=== PATIENT | male | born 1950 | race Caucasian/White ===

== ENCOUNTER 2017-07-18 19:53 | Emergency (ER) | payer OTHER ==
[2017-07-18 19:58] VITALS: TEMP 99.4
[2017-07-18] MEDS ORDERED: KETOROLAC TROMETHAMINE 30 MG/1 ML VIAL IM ONE (22:21)
[2017-07-18 22:34] LABS: URINE APPEARANCE CLEAR; URINE BILIRUBIN NEGATIVE (NEGATIVE); URINE BLOOD 3+ (NEGATIVE); URINE COLOR STRAW; URINE GLUCOSE (UA) NEGATIVE (NEGATIVE); URINE KETONE NEGATIVE (NEGATIVE); URINE LEUK ESTERASE NEGATIVE (NEGATIVE); URINE NITRITE NEGATIVE (NEGATIVE); URINE PROTEIN NEGATIVE (NEGATIVE); URINE UROBILINOGEN NEGATIVE mg/dL (0.2-1.0)
[2017-07-18] MEDS ORDERED: KETOROLAC TROMETHAMINE 30 MG/1 ML VIAL ONE (22:34)
[2017-07-18 22:36] LABS: URINE BACTERIA RARE /hpf (NONE SEEN); URINE MUCUS RARE; URINE RBC 1 /hpf (0-3); URINE WBC 2 /hpf (3-5)
[2017-07-18 22:38] LABS: BASOPHIL 0.2 % (0-2.0); EOSINOPHIL 0.1 % (0-4.5); MCH 27.4 pg (25.7-33.7); MCHC 34.7 g/dl (32.0-35.9); NEUTROPHILS 78.9 % (42.8-82.8); RDW 14.9 % (11.9-15.9); WHITE BLOOD COUNT 9.1 K/mm3 (4.0-10.0)
[2017-07-18] MEDS ORDERED: KETOROLAC TROMETHAMINE 30 MG/1 ML VIAL IVPUSH ONE (22:43)
[2017-07-18 23:09] LABS: ANION GAP 7 (8-16); CALCIUM 8.8 mg/dL (8.5-10.1); CO2 25 mmol/L (21-32); CREATININE 2.3 mg/dL (0.7-1.3); GLUCOSE,RANDOM 117 mg/dL (74-106)
[2017-07-18 23:10] LABS: MEAN PLT VOLUME 10.4 fl (7.5-11.1); PLATELET COUNT 64 K/MM3 (134-434)
[2017-07-18 23:11] LABS: PLATELET ESTIMATE DECREASED
--- NOTE | 2017-07-18 23:40 | PDOC ---
History of Present Illness - General Chief Complaint: Pain, Acute Stated Complaint: PAIN, ACUTE Time Seen by Provider: 07/18/17 22:03 - History of Present Illness Initial Comments: 07/18/17 23:32 CHIEF COMPLAINT: "kidney stones" HISTORY OF PRESENT ILLNESS: 67 yo M with hx of HTN, HLD, and nephrolithiasis presents to ED with pain to L flank x 2 days. Patient states that he saw his urologist four days ago and believes he did have sediment in his urine. He was told to follow up on Thursday for further evaluation but to come to the ER if he began experiencing severe pain. He was given Levaquin to cover for a UTI. Over the last two days he has been having worsening pain and today he was told by his urologist to come in for a spiral CT. PCP:Grace Ryder Urologist is Dr. Null in [place]. PAST MEDICAL HISTORY: as per HPI FAMILY HISTORY: Denies SOCIAL HISTORY: Denies tobacco, alcohol, illicit drug use. SURGICAL HISTORY: "surgery for diverticulitis, and for kidney stones" ALLERGIES: No known drug allergies REVIEW OF SYSTEMS General/Constitutional: Denies fever or chills. Denies weakness, weight change. HEENT: Denies change in vision. Denies ear pain or discharge. Denies sore throat. Cardiovascular: Denies chest pain or shortness of breath. Respiratory: Denies cough, wheezing, or hemoptysis. Gastrointestinal: Denies nausea, vomiting, diarrhea or constipation. Denies rectal bleeding. Genitourinary: Blood in urine, dysuria, L flank pain. Musculoskeletal: Denies joint or muscle swelling or pain. Denies neck or back pain. Skin and breasts: Denies rash or easy bruising. PHYSICAL EXAM General Appearance: Well-appearing, appropriately dressed. No apparent distress , no intoxication. HEENT: EOMI, PERRLA, normal ENT inspection, normal voice, TMs normal, pharynx normal. No conjunctival pallor. No photophobia, scleral icterus. Neck: Supple. Trachea midline. No tenderness, rigidity, carotid bruit, stridor , lymphadenopathy, or thyromegaly. Respiratory/Chest: Lungs CTAB. Cardiovascular: RRR. S1, S2. Gastrointestinal/Abdominal: Normal bowel sounds. Abdomen soft, non-distended. No tenderness or rebound tenderness. No organomegaly, pulsatile mass, guarding , hernia, hepatomegaly, splenomegaly. Musculoskeletal/Extremities: Marked L CVA tenderness. Normal inspection. FROM of all extremities, normal capillary refill. Pelvis Stable. No tenderness to extremities, pedal edema, swelling, erythema or deformity. Integumentary: Appropriate color, dry, warm. 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 Fully oriented, alert. Appropriate mood/affect. Motor strength 5/5. No appreciable EOM palsy, facial droop or sensory deficit. Past History - Past Medical History Allergies/Adverse Reactions: Allergies Allergy/AdvReac Type Severity Reaction Status Date / Time No Known Allergies Allergy Verified 07/18/17 19:55 Home Medications: Ambulatory Orders Atorvastatin Calcium 10 mg PO DAILY 07/18/17 Levofloxacin [Levaquin -] 500 mg PO DAILY 07/18/17 Valsartan [Diovan] 160 mg PO DAILY 07/18/17 Tamsulosin HCl [Flomax] 0.4 mg PO DAILY #21 cap.er.24h 07/19/17 HTN: Yes Hypercholesterolemia: Yes Other medical history: diverticulits - Psycho/Social/Smoking Cessation Hx Suicidal Ideation: No Smoking History: Former smoker Have you smoked in the past 12 months: No Information on smoking cessation initiated: No *Physical Exam - Vital Signs Last Vital Signs Temp Pulse Resp BP Pulse Ox 99.4 F 91 H 18 150/84 99 07/18/17 19:55 07/18/17 19:55 07/18/17 19:55 07/18/17 19:55 07/18/17 19:55 ED Treatment Course - LABORATORY CBC & Chemistry Diagram: 07/18/17 22:30 07/18/17 22:33 - ADDITIONAL ORDERS Additional order review: Laboratory Results 07/18/17 07/18/17 22:33 22:20 Sodium 135 L Potassium 5.0 Chloride 103 Carbon Dioxide 25 Anion Gap 7 L BUN 25 H Creatinine 2.3 H Random Glucose 117 H Calcium 8.8 Urine Color Straw Urine Appearance Clear Urine pH 5.0 Urine Protein Negative Urine Glucose (UA) Negative Urine Ketones Negative Urine Blood 3+ H Urine Nitrite Negative Urine Bilirubin Negative Urine Urobilinogen Negative Ur Leukocyte Esterase Negative Urine RBC 1 Urine WBC 2 Urine Bacteria Rare Urine Mucus Rare 07/18/17 22:30 RBC 5.02 MCV 79.0 L MCHC 34.7 RDW 14.9 MPV 10.4 Neutrophils % 78.9 Lymphocytes % 8.0 Monocytes % 12.8 H Eosinophils % 0.1 Basophils % 0.2 - RADIOLOGY Radiology Studies Ordered: Category Date Time Status SPIRAL- RENAL-STONE CT [CT] Stat CT Scan 07/18/17 22:20 Taken - Medications Given in the ED: ED Medications Discontinued Medications Generic Name Dose Route Start Last Admin Trade Name Freq PRN Reason Stop Dose Admin Ketorolac Tromethamine 30 mg 07/18/17 22:21 07/18/17 22:44 Toradol Injection - IM 07/18/17 22:22 Not Given ONCE ONE Ketorolac Tromethamine 30 mg 07/18/17 22:43 07/18/17 22:43 Toradol Injection - IVPUSH 07/18/17 22:44 30 mg NOW ONE Administration Medical Decision Making - Medical Decision Making 07/18/17 23:40 67 yo M with hx of HTN, HLD, and nephrolithiasis presents to ED with pain to L flank x 2 days. -CBC, CMP -UA, Ucx -Spiral CT -30 mg Toradol IV 07/19/17 00:25 Creatinine 2.3, BUN 25. However patient and state that patient is known to have elevated creatinine, stating that "every time he gets his blood work done at Dr. Ryder's office they mention that he has an elevated kidney function test." Patient states at this time he has no pain at all. -1L NS -Flomax po RX for Flomax sent to pharm. Advised patient to take medications as prescribed. Patient states he has appointment with urologist Dr. Ortiz on Thursday morning at 9:30. Advised patient to f/u as planned and of signs and symptoms for return to ER; patient verbalized understanding and agrees to plan. *DC/Admit/Observation/Transfer Diagnosis at time of Disposition: Nephrolithiasis - Discharge Dispostion Condition at time of disposition: Improved Admit: No - Prescriptions Prescriptions: Tamsulosin HCl [Flomax] 0.4 mg PO DAILY #21 cap.er.24h - Referrals Referrals: Grace Ryder MD [Primary Care Provider] - Henry Ortiz MD [Staff Physician] - Alfonso Gonzalez MD [Staff Physician] - - Patient Instructions Printed Discharge Instructions: DI for Kidney Stones Additional Instructions: Please take medication as prescribed. Follow up with Dr. Ortiz on Thursday morning as planned. You may also wish to see a aquatic ecologist to further evaluate your elevated kidney function tests; I have provided a referral. If you experience any increased pain, inability to pass urine, or any new or worsening symptoms, please return to the ER.
[2017-07-19] MEDS ORDERED: TAMSULOSIN HCL 0.4 MG CAP.ER.24H (FP) PO ONE (00:24)
[2017-07-19] MEDS ORDERED: SODIUM CHLORIDE 0.9% 500 ML INFUS.BAG IV ONE (00:24)
[2017-07-19] MEDS ORDERED: TAMSULOSIN HCL 0.4 MG CAP.ER.24H (FP) ONE (01:11)
[2017-07-19 01:17] VITALS: BP 147/83; PULSE 76
== END 2017-07-19 01:18 | disposition home or self-care (01) ==
LOC: JER 19:53
PROC: 3E0333Z Introduction of Anti-inflammatory into Peripheral Vein, Percutaneous Approach (ICD-10-PCS; principal; 2017-07-18)
PROC: 3E0337Z Introduction of Electrolytic and Water Balance Substance into Peripheral Vein, Percutaneous Approach (ICD-10-PCS; 2017-07-18)
DX: N20.0 Calculus of kidney (principal); Z87.442 Personal history of urinary calculi; I10 Essential (primary) hypertension; E78.00 Pure hypercholesterolemia, unspecified
CPT/HCPCS: 36415; 74176; 80048; 81003; 81015; 85025; 87086; 96361; 96374; 99282-25

== ENCOUNTER 2017-07-25 14:28 | Inpatient (IN) | payer OTHER ==
[2017-07-25 14:32] VITALS: BMI 25.0
--- NOTE | 2017-07-25 15:07 | PDOC ---
History of Present Illness - General Chief Complaint: Pain, Acute Stated Complaint: KIDNEY STONES Time Seen by Provider: 07/25/17 15:06 History Source: Patient Exam Limitations: No Limitations - History of Present Illness Initial Comments: 07/25/17 22:09 CC: Kidney Stones Patient is a 67 y.o. male with a PMH of nephrolithiasis and diverticulosis who presents to our ED today c/o unremitting pain from his kidney stones in his left flank. Patient was evaluated at our facility on 07/18/17 for B/L nephrolithiasis at which time he was discharged and followed up with Dr. Ortiz who recommended no intervention for stone passage and return to ED if his pain continued. Patient was given Percocet for his pain, however, patient states it made him nauseous and he decided to come to the ED today because of continuing severe pain in his left side. Past History - Past Medical History Allergies/Adverse Reactions: Allergies Allergy/AdvReac Type Severity Reaction Status Date / Time No Known Allergies Allergy Verified 07/25/17 14:32 Home Medications: Ambulatory Orders Atorvastatin Calcium 10 mg PO DAILY 07/18/17 Levofloxacin [Levaquin -] 500 mg PO DAILY 07/18/17 Valsartan [Diovan] 160 mg PO DAILY 07/18/17 Tamsulosin HCl [Flomax] 0.4 mg PO DAILY #21 cap.er.24h 07/19/17 GI Disorders: Yes (DIVERTICULITIS.) HTN: Yes Hypercholesterolemia: Yes Kidney Stones: Yes - Surgical History Abdominal Surgery: Yes (FOR DIVERTIC.) - Psycho/Social/Smoking Cessation Hx Anxiety: No Suicidal Ideation: No Smoking History: Never smoked Have you smoked in the past 12 months: No Hx Alcohol Use: No Drug/Substance Use Hx: No Review of Systems - Review of Systems Constitutional: No: Chills, Diaphoresis, Fever, Unexplained wgt Loss HEENTM: No: Eye Pain, Blurred Vision, Tinnitus, Hearing Loss, Throat Pain Respiratory: No: Cough, Orthopnea, Shortness of Breath, Stridor, Wheezing Cardiac (ROS): No: Chest Pain, Edema, Irregular Heart Rate, Lightheadedness, Palpitations ABD/GI: No: Constipated, Diarrhea : Yes: Flank Pain. No: Burning, Dysuria Musculoskeletal: Yes: Back Pain Neurological: No: Headache, Numbness, Paresthesia Psychiatric: No: Anxiety, Depression All Other Systems: Reviewed and Negative *Physical Exam - Vital Signs Last Vital Signs Temp Pulse Resp BP Pulse Ox 99.1 F 88 18 114/72 98 07/25/17 14:29 07/25/17 14:29 07/25/17 14:29 07/25/17 14:29 07/25/17 14:29 - Physical Exam General Appearance: Yes: Nourished, Appropriately Dressed Neck: positive: Trachea midline, Supple Respiratory/Chest: positive: Lungs Clear, Normal Breath Sounds Cardiovascular: positive: Regular Rhythm, Regular Rate, S1, S2 Gastrointestinal/Abdominal: positive: Flat, Soft Male Genitalia: positive: CVAT Musculoskeletal: positive: CVA Tenderness (L) Extremity: positive: Normal Capillary Refill, Normal Inspection Integumentary: positive: Normal Color, Dry, Warm Neurologic: positive: Fully Oriented, Alert ED Treatment Course - LABORATORY CBC & Chemistry Diagram: 07/25/17 15:45 07/25/17 16:55 Medical Decision Making - Medical Decision Making 07/25/17 22:38 Patient is a 67 y.o. male with a PMH of nephrolithiasis returns with unremitting pain. PLAN 1. UA 2. BMP, CBC 3. Renal U/S 4. Pain control 07/25/17 22:[address] Hobbs, requested KUB and admission to inpatient hospital service following Cr 3.7 (2.3 on 07/18). Patient admitted to inpatient medicine service. *DC/Admit/Observation/Transfer Diagnosis at time of Disposition: Nephrolithiasis - Discharge Dispostion Condition at time of disposition: Good Admit: Yes - Attestations Physician Attestion: 07/25/17 23:51 I, Dr. Chyna Rebollar, attest the documentation in this note accurately reflects my medical decision making.
[2017-07-25] MEDS ORDERED: KETOROLAC TROMETHAMINE 30 MG/1 ML VIAL IVPUSH ONE (15:16)
--- NOTE | 2017-07-25 15:17 | PDOC ---
Attending Attestation - Medical Decision Making 07/25/17 15:49 Dr. Ortiz, urologist, was paged via phone answering service requesting a call back for doctor to doctor consult. <Raisa Sloan - Last Filed: 07/25/17 15:49> - Resident Resident Name: Chyna Rebollar - ED Attending Attestation I have performed the following: I have examined & evaluated the patient, The case was reviewed & discussed with the resident, I agree w/resident's findings & plan, Exceptions are as noted - HPI HPI: 67 yo M hx kidney stones presents with worsening pain to L flank. He was evaluated in ED recently for similar complaint, however, now it is getting worse. Denies vomiting. He had hematuria a few days ago. He has been taking percocet for pain, but needed to decrease the dose due to nausea associated with the medication. As a result, his pain has not been controlled. He saw Dr. Ortiz 2 days ago for follow-up. - Physicial Exam PE: GENERAL: Awake, alert, and fully oriented, in no acute distress HEAD: No signs of trauma EYES: PERRLA, EOMI, sclera anicteric, conjunctiva clear ENT: Auricles normal inspection, hearing grossly normal, nares patent, oropharynx clear without exudates. Moist mucosa NECK: Normal ROM, supple, no lymphadenopathy, JVD, or masses LUNGS: Breath sounds equal, clear to auscultation bilaterally. No wheezes, and no crackles HEART: Regular rate and rhythm, normal S1 and S2, no murmurs, rubs or gallops ABDOMEN: Soft, nontender, normoactive bowel sounds. No guarding, no rebound. No masses. +L CVAT. EXTREMITIES: Normal range of motion, no edema. No clubbing or cyanosis. No cords, erythema, or tenderness NEUROLOGICAL: Cranial nerves II through XII grossly intact. Normal speech, normal gait SKIN: Warm, Dry, normal turgor, no rashes or lesions noted. - Medical Decision Making Patient with obstructing kidney stone on the L side, now with increasing creatinine. Will admit to hospitalist, to be evaluated by urology and renal. <Constanza Musa - Last Filed: 07/25/17 17:16>
[2017-07-25] MEDS ORDERED: ONDANSETRON 4 MG/2 ML VIAL IVPB ONE (15:21)
[2017-07-25] MEDS ORDERED: morphine CARPU-JECT 4 MG/1 ML DISP.SYRIN IVPUSH ONE (15:22)
[2017-07-25] MEDS ORDERED: SODIUM CHLORIDE 0.9% 1000 ML INFUS.BAG IV ONE (15:25)
[2017-07-25] MEDS ORDERED: morphine CARPU-JECT 2 MG/1 ML DISP.SYRIN ONE (15:28)
[2017-07-25] MEDS ORDERED: ONDANSETRON 4 MG/2 ML VIAL ONE (15:28)
[2017-07-25 15:51] LABS: BASOPHIL 0.2 % (0-2.0); MCH 27.5 pg (25.7-33.7); MCHC 34.2 g/dl (32.0-35.9); MEAN CELL VOLUME 80.2 fl (80-96); MEAN PLT VOLUME 9.2 fl (7.5-11.1); NEUTROPHILS 75.5 % (42.8-82.8); PLATELET COUNT 122 K/MM3 (134-434); RDW 15.2 % (11.9-15.9)
[2017-07-25 15:59] LABS: URINE APPEARANCE SLCLOUDY; URINE BILIRUBIN NEGATIVE (NEGATIVE); URINE BLOOD 1+ (NEGATIVE); URINE COLOR LTYELLOW; URINE GLUCOSE (UA) 1+ (NEGATIVE); URINE KETONE NEGATIVE (NEGATIVE); URINE LEUK ESTERASE NEGATIVE (NEGATIVE); URINE NITRITE NEGATIVE (NEGATIVE); URINE PROTEIN NEGATIVE (NEGATIVE); URINE UROBILINOGEN NEGATIVE mg/dL (0.2-1.0)
[2017-07-25 16:05] LABS: ANION GAP 12 (8-16); CALCIUM 8.7 mg/dL (8.5-10.1); CO2 23 mmol/L (21-32); CREATININE 3.7 mg/dL (0.7-1.3); GLUCOSE,RANDOM 125 mg/dL (74-106)
[2017-07-25 16:06] LABS: GRANULAR CASTS 1 /lpf; URINE HYALINE CAST 13 /lpf; URINE MUCUS RARE
[2017-07-25 16:08] LABS: URINE WBC 12 /hpf (3-5)
[2017-07-25 16:13] LABS: INR 1.27 (0.82-1.09)
[2017-07-25] MEDS ORDERED: morphine CARPU-JECT 2 MG/1 ML DISP.SYRIN IM ONE (16:38)
[2017-07-25] MEDS ORDERED: HYDROmorphone HCL CARPU-JECT 1 MG/1 ML DISP.SYRIN IVPB ONE (16:46)
[2017-07-25] MEDS ORDERED: HYDROmorphone HCL CARPU-JECT 1 MG/1 ML DISP.SYRIN ONE (16:46)
[2017-07-25 18:26] LABS: ALBUMIN 2.8 g/dl (3.4-5.0); ALK PHOS 130 U/L (45-117); ANION GAP 10 (8-16); BILIRUBIN,TOTAL 0.3 mg/dL (0.2-1.0); CALCIUM 8.7 mg/dL (8.5-10.1); CO2 24 mmol/L (21-32); CREATININE 3.5 mg/dL (0.7-1.3); GLUCOSE,RANDOM 118 mg/dL (74-106); SGOT/AST 51 U/L (15-37); SGPT/ALT 72 U/L (12-78); TOT PROT 6.2 g/dl (6.4-8.2)
[2017-07-25] MEDS ORDERED: ONDANSETRON 4 MG/2 ML VIAL IVPUSH PRN (19:29)
--- NOTE | 2017-07-25 19:36 | PN ---
Teaching Attending Note Name of Resident: Rafita Caraballo ATTENDING PHYSICIAN STATEMENT I saw and evaluated the patient. I reviewed the resident's note and discussed the case with the resident. I agree with the resident's findings and plan as documented. SUBJECTIVE: 67 year old male that originally presented on 07/18 with c/o flank pain , was found to have evidence of ARF, non obstructive nephrolithiasis and uti and was discharged home from ED on oral Levaquin and FLomax to follow with urology . He returns today due to left flank pain that is getting worse. no fever , no chills. ED course is significant for US of the abdomen revealing Left sided hydronephrosis and obstructing 0.5 cm Left renal stone. PMH Nephrolithiasis HTN HLD OBJECTIVE: Vital Signs Temperature 98.9 F 07/25/17 19:33 Pulse Rate 84 07/25/17 19:33 Respiratory Rate 16 07/25/17 19:33 Blood Pressure 143/84 07/25/17 19:33 O2 Sat by Pulse Oximetry (%) 98 07/25/17 17:56 HEENT PERRL CVS S1 S2 WNL NO MRG , NO JVD NO PEDAL EDEMA RS CTA B/L CBC, BMP 07/25/17 15:45 07/25/17 16:55 ASSESSMENT : 1. Obstructive nephropathy/ARF - secondary to nephrolithiasis, acute . Unlikely will resolve with conservative management 2. Possible history of CKD and renal cysts 3. Left sided hydronephrosis- acute 4. HTN - stable 5. Intractable pain PLAN : 1. IVF 2. Pain contro lwith IV morphine PRN Q6 hr 3. Urology evaluation for cystoscopy and NPO after midnight 4. Monitor renal function 5 . No need for antibiotics at this time
[2017-07-25] MEDS ORDERED: oxyCODONE HCL 5 MG TABLET PO PRN (19:39)
[2017-07-25] MEDS ORDERED: ACETAMINOPHEN 325 MG TABLET (FP) PO PRN (19:39)
[2017-07-25] MEDS: morphine CARPU-JECT 2 MG/1 ML DISP.SYRIN IVPUSH PRN (19:50)
[2017-07-25] MEDS: SODIUM CHLORIDE 1,000 ML IV SCH (19:50)
--- NOTE | 2017-07-25 19:56 | HP ---
CHIEF COMPLAINT: Left flank pain PCP: Aleksey HISTORY OF PRESENT ILLNESS: Pt is a 67 y/o M with PMH HTN, HLD who presented to ED with continuing left back pain since his prior admission on the for the same. Pt had come to this ED and had a CT demonstrating multiple renal stones with moderate L hydronephrosis and parapelvic renal cysts. Pt was sent home with instructions to follow up with urologist, Dr. Ortiz. Pt states urologist was attempting to allow for spontaneous passage of stones. Pt denies hematuria, fever, chills, nausea, vomiting, diarrhea, chest pain, shortness of breath. 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, UA remarkable for 12 WBC, 1+ blood, 1+ glucose (2) NS x 1L, Morphine, hydromorphone (3) Recent Travel: denies PAST MEDICAL HISTORY: HTN, HLD, remote prior renal stone PAST SURGICAL HISTORY: denies Social History: Smoking: no Alcohol: no Drugs: no Family History: denies Allergies No Known Allergies Allergy (Verified 07/25/17 14:32) HOME MEDICATIONS: Home Medications Medication Instructions Recorded Atorvastatin Calcium 10 mg PO DAILY 07/18/17 Levofloxacin [Levaquin -] 500 mg PO DAILY 07/18/17 Valsartan [Diovan] 160 mg PO DAILY 07/18/17 Tamsulosin HCl [Flomax] 0.4 mg PO DAILY #21 cap.er.24h 07/19/17 REVIEW OF SYSTEMS CONSTITUTIONAL: Absent: fever, chills, diaphoresis, generalized weakness, malaise, loss of appetite, weight change HEENT: Absent: rhinorrhea, nasal congestion, throat pain, throat swelling, difficulty swallowing, mouth swelling, ear pain, eye pain, visual changes CARDIOVASCULAR: Absent: chest pain, syncope, palpitations, irregular heart rate, lightheadedness , peripheral edema RESPIRATORY: Absent: cough, shortness of breath, dyspnea with exertion, orthopnea, wheezing, stridor, hemoptysis GASTROINTESTINAL: abdominal/flank pain Absent:, abdominal distension, nausea, vomiting, diarrhea, constipation, melena , hematochezia GENITOURINARY: flank pain Absent: dysuria, frequency, urgency, hesitancy, hematuria, , genital pain MUSCULOSKELETAL: Absent: myalgia, arthralgia, joint swelling, back pain, neck pain SKIN: Absent: rash, itching, pallor HEMATOLOGIC/IMMUNOLOGIC: Absent: easy bleeding, easy bruising, lymphadenopathy, frequent infections ENDOCRINE: Absent: unexplained weight gain, unexplained weight loss, heat intolerance, cold intolerance NEUROLOGIC: Absent: headache, focal weakness or paresthesias, dizziness, unsteady gait, seizure, mental status changes, bladder or bowel incontinence PSYCHIATRIC: Absent: anxiety, depression, suicidal or homicidal ideation, hallucinations. PHYSICAL EXAMINATION Vital Signs - 24 hr 07/25/17 07/25/17 17:56 19:33 Temperature 98.5 F 98.9 F Pulse Rate 84 Pulse Rate [ 80 Apical] Respiratory 18 16 Rate Blood Pressure 143/84 Blood Pressure 110/77 [Right Arm] O2 Sat by Pulse 98 Oximetry (%) GENERAL: Awake, alert, and fully oriented, in no acute distress. HEAD: Normal with no signs of trauma. EYES: Pupils equal, round and reactive to light, extraocular movements intact, sclera anicteric, conjunctiva clear. No lid lag. EARS, NOSE, THROAT:nares patent, oropharynx clear without exudates. Moist mucous membranes. NECK: Normal range of motion, supple without lymphadenopathy, JVD, or masses. LUNGS: Breath sounds equal, clear to auscultation bilaterally. No wheezes, and no crackles. No accessory muscle use. HEART: Regular rate and rhythm, normal S1 and S2 without murmur, rub or gallop. ABDOMEN: Soft, marked tenderness to palpation of L flank not distended, normoactive bowel sounds, no guarding, no rebound, no masses. No hepatomegaly or splenomegaly. MUSCULOSKELETAL: Normal range of motion at all joints. No bony deformities or tenderness. No CVA tenderness. UPPER EXTREMITIES: 2+ pulses, warm, well-perfused. No cyanosis. No clubbing. No peripheral edema. LOWER EXTREMITIES: 2+ pulses, warm, well-perfused. No calf tenderness. No peripheral edema. NEUROLOGICAL: Cranial nerves II-XII intact. Normal speech. Normal gait. PSYCHIATRIC: Cooperative. Good eye contact. Appropriate mood and affect. SKIN: Warm, dry, normal turgor, no rashes or lesions noted, normal capillary refill. ASSESSMENT/PLAN: This is a 67 y/o gentleman with PMH HTN, HLD, prior kidney stone many years ago who presented to ED with L flank pain. Pt is being admitted for nephrolithiasis with hydronephrosis. #nephrolithiasis/hydronephrosis -nephrolithiasis by US -hydronephrosis by CT (07/18) -pyelonephritis unlikely. afebrile, no leukocytosis -Urology and Nephrology consulted. 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
[2017-07-25] MEDS: HEPARIN NA (PORCINE) 5,000 UNITS/ML 1ML VIAL SQ SCH (21:12)
[2017-07-26] MEDS: morphine CARPU-JECT 2 MG/1 ML DISP.SYRIN IVPUSH PRN ×2 (01:28→08:57)
--- NOTE | 2017-07-26 07:15 | CON.GU ---
Consult Consult Specialty:: Urology Reason for Consultation:: Left ureteral calculus and left hydronephrosis - History of Present Illness Chief Complaint: left sided back and abdominal pain - History Source History Provided By: Patient Limitations to Obtaining History: No Limitations - Past Medical History Renal/: Yes: Renal Inusuff, BPH - Alcohol/Substance Use Hx Alcohol Use: No - Smoking History Smoking history: Never smoked Have you smoked in the past 12 months: No - Social History Usual Living Arrangement: With Spouse Home Medications - Allergies Allergies/Adverse Reactions: Allergies Allergy/AdvReac Type Severity Reaction Status Date / Time No Known Allergies Allergy Verified 07/25/17 14:32 - Home Medications Home Medications: Ambulatory Orders Atorvastatin Calcium 10 mg PO DAILY 07/18/17 Levofloxacin [Levaquin -] 500 mg PO DAILY 07/18/17 Valsartan [Diovan] 160 mg PO DAILY 07/18/17 Tamsulosin HCl [Flomax] 0.4 mg PO DAILY #21 cap.er.24h 07/19/17 Family Disease History - Family Disease History Family History: Unremarkable Review of Systems - Review of Systems Constitutional: reports: No Symptoms Eyes: reports: No Symptoms HENT: reports: No Symptoms Neck: reports: No Symptoms Cardiovascular: reports: No Symptoms Respiratory: reports: No Symptoms Gastrointestinal: reports: Abdominal Pain, Nausea Genitourinary: reports: Burning, Hematuria Breasts: reports: No Symptoms Reported Musculoskeletal: reports: No Symptoms Integumentary: reports: No Symptoms Neurological: reports: No Symptoms Endocrine: reports: No Symptoms Hematology/Lymphatic: reports: No Symptoms Psychiatric: reports: No Symptoms Pain Intensity: 5 Physical Exam- Vital Signs: Vital Signs Temperature 98.9 F 07/26/17 06:00 Pulse Rate 73 07/26/17 06:00 Respiratory Rate 16 07/26/17 06:00 Blood Pressure 95/61 07/26/17 06:00 O2 Sat by Pulse Oximetry (%) 98 07/25/17 17:56 Constitutional: Yes: Well Nourished, No Distress Eyes: Yes: WNL, Conjunctiva Clear, EOM Intact HENT: Yes: WNL, Atraumatic, Normocephalic Neck: Yes: WNL, Supple, Trachea Midline Cardiovascular: Yes: WNL, Regular Rate and Rhythm Respiratory: Yes: WNL, Regular, CTA Bilaterally Gastrointestinal: Yes: WNL, Normal Bowel Sounds, Soft, Tenderness (left lower quadrewnt.) Renal/: Yes: WNL Kidneys: Yes: Flank Pain Left Pelvis: Yes: WNL Testicles: Yes: WNL Scrotum: Yes: WNL Penis: Yes: WNL Prostate Exam: Yes: Deferred Musculoskeletal: Yes: WNL Extremities: Yes: WNL Edema: No Integumentary: Yes: WNL Wound/Incision: Yes: Clean/Dry Neurological: Yes: WNL ...Motor Strength: WNL Psychiatric: Yes: WNL Labs: Reviewed. Serum creatinine is 3.5 today. Imaging - Results X-ray: Image Reviewed Ultrasound: Report Reviewed Problem List - Problems (1) Ureteral calculus Code(s): N20.1 - CALCULUS OF URETER Assessment/Plan Pt with obstructing left ureteral calculus with persistent pain intermittent. Currently has minimal pain which is controlled with MS. Pt has renal insufficiency and will schedule cysto and insertion of a left double J ureteral stent to relieve the obstructive and restore creatinin to unobstructed level. NPO after midnight.
[2017-07-26 08:07] LABS: BASOPHIL 0.3 % (0-2.0); EOSINOPHIL 1.1 % (0-4.5); MCH 26.8 pg (25.7-33.7); MCHC 33.4 g/dl (32.0-35.9); MEAN CELL VOLUME 80.1 fl (80-96); MEAN PLT VOLUME 8.9 fl (7.5-11.1); NEUTROPHILS 74.4 % (42.8-82.8); PLATELET COUNT 122 K/MM3 (134-434); RDW 15.2 % (11.9-15.9); WHITE BLOOD COUNT 5.5 K/mm3 (4.0-10.0)
[2017-07-26 08:27] LABS: INR 1.21 (0.82-1.09); PROTHROMBIN TIME (PATIENT) 13.4 SEC (9.98-11.88)
[2017-07-26 08:30] LABS: ACTIVATED PTT 26.2 SECONDS (26.9-34.4)
[2017-07-26 08:47] LABS: ANION GAP 10 (8-16); CALCIUM 8.6 mg/dL (8.5-10.1); CO2 21 mmol/L (21-32); CREATININE 3.1 mg/dL (0.7-1.3); GLUCOSE,RANDOM 99 mg/dL (74-106); MAGNESIUM 2.3 mg/dL (1.8-2.4); PHOSPHOROUS 4.2 mg/dL (2.5-4.9)
[2017-07-26] MEDS: TAMSULOSIN HCL 0.4 MG CAP.ER.24H (FP) PO SCH (08:57)
[2017-07-26] MEDS: HEPARIN NA (PORCINE) 5,000 UNITS/ML 1ML VIAL SQ SCH ×2 (09:06→21:53)
--- NOTE | 2017-07-26 09:35 | PN ---
Physical Exam: SUBJECTIVE: Patient seen and examined. Flank pain is relieved by morphine. Oxycodone made him nauseous. OBJECTIVE: Vital Signs Period Temp Pulse Resp BP Sys/Cronin Pulse Ox Last 24 Hr 98.5 F-98.9 F 73-84 16-18 95-143/61-84 98 GENERAL: The patient is awake, alert, and fully oriented, in no acute distress. LUNGS: Breath sounds equal, clear to auscultation bilaterally, no wheezes, no crackles, no accessory muscle use. HEART: Regular rate and rhythm, S1, S2 without murmur, rub or gallop. ABDOMEN: Soft, nontender, nondistended, normoactive bowel sounds, no guarding, no rebound, no hepatosplenomegaly, no masses. EXTREMITIES: 2+ pulses, warm, well-perfused, no edema. Laboratory Results - last 24 hr 07/26/17 07/26/17 07/26/17 06:00 06:00 06:00 WBC 5.5 RBC 4.17 Hgb 11.2 L Hct 33.4 L MCV 80.1 MCH 26.8 MCHC 33.4 RDW 15.2 Plt Count 122 L MPV 8.9 Neutrophils % 74.4 Lymphocytes % 11.2 Monocytes % 13.0 H Eosinophils % 1.1 Basophils % 0.3 INR 1.21 H PTT (Actin FS) 26.2 L Sodium 138 Potassium 4.5 Chloride 107 Carbon Dioxide 21 Anion Gap 10 BUN 50 H Creatinine 3.1 H Random Glucose 99 Calcium 8.6 Phosphorus 4.2 Magnesium 2.3 Active Medications Generic Name Dose Route Start Last Admin Trade Name Freq PRN Reason Stop Dose Admin Acetaminophen 650 mg 07/25/17 19:39 Tylenol - PO Q6H PRN FEVER OR PAIN Heparin Sodium (Porcine) 5,000 unit 07/25/17 22:00 07/26/17 09:06 Heparin - SQ 5,000 unit BID BRIANA Administration Sodium Chloride 1,000 mls @ 100 mls/hr 07/25/17 19:30 07/25/17 19:50 Normal Saline - IV 100 mls/hr ASDIR BRIANA Administration Morphine Sulfate 2 mg 07/25/17 19:22 07/26/17 08:57 Morphine Injection - IVPUSH 2 mg Q6H PRN Administration PAIN Ondansetron HCl 4 mg 07/25/17 19:29 Zofran Injection IVPUSH Q6H PRN NAUSEA AND/OR VOMITING Oxycodone HCl 10 mg 07/25/17 19:39 Roxicodone - PO Q6H PRN Tamsulosin HCl 0.4 mg 07/26/17 08:30 07/26/17 08:57 Flomax - PO 0.4 mg DAILY@0830 [facility] Administration ASSESSMENT/PLAN: This is a 67 year old man with a history of HTN, hyperlipidemia, kidney stone who presented to ED with left flank pain. 1. Obstructive uropathy secondary to 6 mm left proximal ureteral stone with left hydronephrosis - Continue IV fluid, Flomax - Continue morphine as needed for pain, Zofran as needed for nausea - Plan for stent placement tomorrow 2. Acute kidney injury - Creatinine improving - will need stent to relieve ureteral obstruction - Continue IV fluid - Monitor creatinine 3. HTN - Diovan held secondary to SELINA 4. Hyperlipidemia - Continue Lipitor Visit type - Emergency Visit Emergency Visit: Yes ED Registration Date: 07/25/17 Care time: The patient presented to the Emergency Department on the above date and was hospitalized for further evaluation of their emergent condition. - New Patient This patient is new to me today: Yes Date on this admission: 07/26/17 - Critical Care Critical Care patient: No - Discharge Referral Referred to [facility] Med P.C.: No
--- NOTE | 2017-07-26 15:07 | CONSULT ---
Consult Consult Specialty:: Nephrology Reason for Consultation:: SELINA and nephrolithiasis - History of Present Illness Chief Complaint: flank pain History of Present Illness: Pt is a 67 year old male with pmhx of nephrolithiasis and diverticulosis who presents to the ER for flank terry. He was in the ER about a week ago and was discharged with outpt follow up. He has not seen Dr Ortiz. He presented with worsening pain. He was found to have SELINA and I was called to evaluate him. Pt was found to have left sided hydro and is going for cysto tomorrow. He denies fevers of chills. He has been taking nsaids daily for pain. He is awake and alert. - History Source History Provided By: Patient, Medical Record - Past Medical History Cardio/Vascular: Yes: HTN, Hyperlipdemia Gastrointestinal: Yes: Diverticulosis Renal/: Yes: Renal Inusuff, BPH, Renal Calculi - Alcohol/Substance Use Hx Alcohol Use: No - Smoking History Smoking history: Never smoked Have you smoked in the past 12 months: No - Social History Usual Living Arrangement: With Spouse Home Medications - Allergies Allergies/Adverse Reactions: Allergies Allergy/AdvReac Type Severity Reaction Status Date / Time No Known Allergies Allergy Verified 07/25/17 14:32 - Home Medications Home Medications: Ambulatory Orders Atorvastatin Calcium 10 mg PO DAILY 07/18/17 Levofloxacin [Levaquin -] 500 mg PO DAILY 07/18/17 Valsartan [Diovan] 160 mg PO DAILY 07/18/17 Tamsulosin HCl [Flomax] 0.4 mg PO DAILY #21 cap.er.24h 07/19/17 Family Disease History - Family Disease History Family History: Denies Review of Systems - Review of Systems Constitutional: reports: Malaise. denies: Chills HENT: reports: No Symptoms Neck: reports: No Symptoms Cardiovascular: reports: No Symptoms Respiratory: reports: No Symptoms Gastrointestinal: reports: No Symptoms Genitourinary: reports: Flank Pain, Hematuria Musculoskeletal: reports: No Symptoms Integumentary: reports: No Symptoms Neurological: reports: No Symptoms Endocrine: reports: No Symptoms Hematology/Lymphatic: reports: No Symptoms Psychiatric: reports: No Symptoms Physical Exam Vital Signs: Vital Signs Temperature 98.5 F 07/26/17 07:58 Pulse Rate 79 07/26/17 07:58 Respiratory Rate 18 07/26/17 07:58 Blood Pressure 135/80 07/26/17 07:58 O2 Sat by Pulse Oximetry (%) 96 07/26/17 09:00 Constitutional: Yes: Calm Eyes: Yes: Conjunctiva Clear HENT: Yes: Atraumatic Neck: Yes: Supple Cardiovascular: Yes: S1, S2 Respiratory: Yes: CTA Bilaterally Gastrointestinal: Yes: Normal Bowel Sounds, Soft Renal/: Yes: CVA Tenderness - Left Musculoskeletal: Yes: WNL Edema: No Neurological: Yes: Oriented Psychiatric: Yes: Oriented Labs: CBC, BMP 07/26/17 06:00 07/26/17 06:00 Laboratory Tests 07/18/17 07/25/17 07/25/17 22:33 15:45 15:45 WBC 7.0 Hgb 11.9 D Sodium Potassium Chloride Carbon Dioxide Anion Gap BUN Creatinine 2.3 H Urine Protein Negative Urine Glucose (UA) 1+ H Urine Ketones Negative Urine Blood 1+ H Urine Nitrite Negative Urine Bilirubin Negative Urine Urobilinogen Negative Ur Leukocyte Esterase Negative 07/25/17 07/25/17 07/26/17 15:45 16:55 06:00 WBC 5.5 Hgb 11.2 L Sodium Potassium Chloride Carbon Dioxide Anion Gap BUN 58 H Creatinine 3.7 H D 3.5 H Urine Protein Urine Glucose (UA) Urine Ketones Urine Blood Urine Nitrite Urine Bilirubin Urine Urobilinogen Ur Leukocyte Esterase 07/26/17 06:00 WBC Hgb Sodium 138 Potassium 4.5 Chloride 107 Carbon Dioxide 21 Anion Gap 10 BUN Creatinine 3.1 H Urine Protein Urine Glucose (UA) Urine Ketones Urine Blood Urine Nitrite Urine Bilirubin Urine Urobilinogen Ur Leukocyte Esterase Imaging - Results Ultrasound: Report Reviewed (left side hydro) Problem List - Problems (1) Nephrolithiasis Code(s): N20.0 - CALCULUS OF KIDNEY (2) SELINA (acute kidney injury) Code(s): N17.9 - ACUTE KIDNEY FAILURE, UNSPECIFIED (3) Hypertension Code(s): I10 - ESSENTIAL (PRIMARY) HYPERTENSION Assessment/Plan Current Medications Generic Name Dose Route Start Last Admin Trade Name Freq PRN Reason Stop Dose Admin Acetaminophen 650 mg 07/25/17 19:39 Tylenol - PO Q6H PRN FEVER OR PAIN Atorvastatin Calcium 10 mg 07/26/17 22:00 Lipitor - PO HS BRIANA Heparin Sodium (Porcine) 5,000 unit 07/25/17 22:00 07/26/17 09:06 Heparin - SQ 5,000 unit BID BRIANA Administration Sodium Chloride 1,000 mls @ 100 mls/hr 07/25/17 19:30 07/25/17 19:50 Normal Saline - IV 100 mls/hr ASDIR BRIANA Administration Morphine Sulfate 2 mg 07/25/17 19:22 07/26/17 08:57 Morphine Injection - IVPUSH 2 mg Q6H PRN Administration PAIN Ondansetron HCl 4 mg 07/25/17 19:29 Zofran Injection IVPUSH Q6H PRN NAUSEA AND/OR VOMITING Oxycodone HCl 10 mg 07/25/17 19:39 Roxicodone - PO Q6H PRN Tamsulosin HCl 0.4 mg 07/26/17 08:30 07/26/17 08:57 Flomax - PO 0.4 mg DAILY@0830 BRIANA Administration Impression 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 nephrolithiasis 4. left side hydro 5. nsaid use 6. hyperlipidemia Plan - cont fluids - stop nsaids - repeat labs in am - pt going for cysto - SELINA likely from obstruction and from excess NSAID use - will monitor renal function - will need outpt follow up - will follow Dr Gonzalez
[2017-07-26] MEDS: SODIUM CHLORIDE 1,000 ML IV SCH (17:02)
[2017-07-26] MEDS: ATORVASTATIN CA 10 MG TABLET (FP) PO SCH ×2 (21:52→21:56)
[2017-07-27] MEDS: SODIUM CHLORIDE 1,000 ML IV SCH (06:37)
[2017-07-27] MEDS: TAMSULOSIN HCL 0.4 MG CAP.ER.24H (FP) PO SCH (07:47)
[2017-07-27 08:51] LABS: ANION GAP 11 (8-16); CALCIUM 8.5 mg/dL (8.5-10.1); CO2 21 mmol/L (21-32); CREATININE 1.8 mg/dL (0.7-1.3); GLUCOSE,RANDOM 98 mg/dL (74-106)
[2017-07-27] MEDS: HEPARIN NA (PORCINE) 5,000 UNITS/ML 1ML VIAL SQ SCH ×2 (09:14→22:00)
[2017-07-27] MEDS ORDERED: MIDAZOLAM HCL 2 MG/2 ML SINGLE DOSE VIAL ONE (14:21)
[2017-07-27] MEDS ORDERED: PROPOFOL 20 ML ONE (14:21)
[2017-07-27] MEDS ORDERED: LEVOFLOXACIN 500 MG IVPB 100 ML IVPB ONE (14:38)
[2017-07-27] MEDS ORDERED: LEVOFLOXACIN 500 MG PREMIX BAG IVPB ONE (14:40)
--- NOTE | 2017-07-27 14:58 | OP ---
Operative Note - Note: Operative Date: 07/27/17 Pre-Operative Diagnosis: left hydronephrosis, left ureteral calculus Operation: cystoscopy, left retrograde Findings: No stones or intraluminal ureteral abnormalities. Resolved hydronephrosis Post-Operative Diagnosis: Same as Pre-op Surgeon: Henry Ortiz Anesthesia: General Operative Report Dictated: Yes
[2017-07-27] MEDS ORDERED: ONDANSETRON 4 MG/2 ML VIAL IVPUSH PRN ×3 (14:59→15:14)
[2017-07-27] MEDS ORDERED: LACTATED RINGERS SOLUTION 1,000 ML IV SCH (15:00)
--- NOTE | 2017-07-27 15:05 | PN ---
Progress Note, Physician History of Present Illness: Pt seen and examined at bedside. He says he passed a stone. I saw him before he went for the cystoscopy. - Current Medication List Current Medications: Active Medications Acetaminophen (Tylenol -) 650 mg PO Q6H PRN PRN Reason: FEVER OR PAIN Atorvastatin Calcium (Lipitor -) 10 mg PO HS [facility] Last Admin: 07/26/17 21:56 Dose: Not Given Fentanyl (Sublimaze Injection -) 50 mcg IVPUSH [id number] PRN PRN Reason: PAIN Stop: 07/30/17 15:00 Heparin Sodium (Porcine) (Heparin -) 5,000 unit SQ BID [facility] Last Admin: 07/27/17 09:14 Dose: Not Given Sodium Chloride (Normal Saline -) 1,000 mls @ 100 mls/hr IV ASDIR [facility] Last Admin: 07/27/17 06:37 Dose: 100 mls/hr Lactated Ringer's (Lactated Ringers Solution) 1,000 mls @ 125 mls/hr IV ASDIR [facility] Morphine Sulfate (Morphine Injection -) 2 mg IVPUSH Q6H PRN PRN Reason: PAIN Last Admin: 07/26/17 08:57 Dose: 2 mg Ondansetron HCl (Zofran Injection) 4 mg IVPUSH Q6H PRN PRN Reason: NAUSEA AND/OR VOMITING Ondansetron HCl (Zofran Injection) 4 mg IVPUSH Q6H PRN PRN Reason: NAUSEA AND/OR VOMITING Stop: 07/27/17 21:00 Oxycodone HCl (Roxicodone -) 10 mg PO Q6H PRN Tamsulosin HCl (Flomax -) 0.4 mg PO DAILY@0830 [facility] Last Admin: 07/27/17 07:47 Dose: Not Given - Objective Vital Signs: Vital Signs Temperature 98.6 F 07/27/17 08:00 Pulse Rate 68 07/27/17 10:29 Respiratory Rate 18 07/27/17 10:29 Blood Pressure 129/78 07/27/17 10:29 O2 Sat by Pulse Oximetry (%) 96 07/27/17 09:00 Constitutional: Yes: Calm Eyes: Yes: Conjunctiva Clear HENT: Yes: Atraumatic Cardiovascular: Yes: S1, S2 Respiratory: Yes: CTA Bilaterally Gastrointestinal: Yes: Normal Bowel Sounds, Soft Genitourinary: Yes: WNL Musculoskeletal: Yes: WNL Edema: No Neurological: Yes: Oriented Psychiatric: Yes: Oriented Labs: CBC, BMP 07/26/17 06:00 07/27/17 07:30 INR, PTT INR 1.21 (0.82-1.09) H 07/26/17 06:00 Problem List - Problems (1) Nephrolithiasis Code(s): N20.0 - CALCULUS OF KIDNEY (2) SELINA (acute kidney injury) Code(s): N17.9 - ACUTE KIDNEY FAILURE, UNSPECIFIED (3) Hypertension Code(s): I10 - ESSENTIAL (PRIMARY) HYPERTENSION Assessment/Plan Current Medications Generic Name Dose Route Start Last Admin Trade Name Freq PRN Reason Stop Dose Admin Acetaminophen 650 mg 07/25/17 19:39 Tylenol - PO Q6H PRN FEVER OR PAIN Atorvastatin Calcium 10 mg 07/26/17 22:00 07/26/17 21:56 Lipitor - PO Not Given HS BRIANA Fentanyl 50 mcg 07/27/17 14:59 Sublimaze Injection - IVPUSH 07/30/17 15:00 [id number] PRN PAIN Heparin Sodium (Porcine) 5,000 unit 07/25/17 22:00 07/27/17 09:14 Heparin - SQ Not Given BID BRIANA Sodium Chloride 1,000 mls @ 100 mls/hr 07/25/17 19:30 07/27/17 06:37 Normal Saline - IV 100 mls/hr ASDIR BRIANA Administration Lactated Ringer's 1,000 mls @ 125 mls/hr 07/27/17 15:00 Lactated Ringers Solution IV ASDIR BRIANA Morphine Sulfate 2 mg 07/25/17 19:22 07/26/17 08:57 Morphine Injection - IVPUSH 2 mg Q6H PRN Administration PAIN Ondansetron HCl 4 mg 07/25/17 19:29 Zofran Injection IVPUSH Q6H PRN NAUSEA AND/OR VOMITING Ondansetron HCl 4 mg 07/27/17 14:59 Zofran Injection IVPUSH 07/27/17 21:00 Q6H PRN NAUSEA AND/OR VOMITING Oxycodone HCl 10 mg 07/25/17 19:39 Roxicodone - PO Q6H PRN Tamsulosin HCl 0.4 mg 07/26/17 08:30 07/27/17 07:47 Flomax - PO Not Given DAILY@0830 BRIANA Impression 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 hx HTN 3. nephrolithiasis 4. left side hydro 5. nsaid use 6. hyperlipidemia Plan - renal function improving - pt going in for cysto - he says he passed the stone - avoid nsaids - repeat labs in am - can see pt in office - SELINA likely from obstruction and from excess NSAID use - will follow Dr Gonzalez
[2017-07-27] MEDS ORDERED: morphine CARPU-JECT 2 MG/1 ML DISP.SYRIN IVPUSH PRN (15:14)
[2017-07-27] MEDS ORDERED: ACETAMINOPHEN 325 MG TABLET (FP) PO PRN (15:14)
[2017-07-27] MEDS ORDERED: oxyCODONE HCL 5 MG TABLET PO PRN (15:14)
[2017-07-27] MEDS: LACTATED RINGERS SOLUTION 1,000 ML IV SCH (16:39)
--- NOTE | 2017-07-27 18:54 | PN ---
Physical Exam: SUBJECTIVE: Patient seen and examined. He passed the stone. No more flank pain. I saw him before his cystoscopy today OBJECTIVE: Vital Signs Period Temp Pulse Resp BP Sys/Cronin Pulse Ox Last 24 Hr 98.0 F-98.7 F 67-82 16-20 125-159/68-89 95-99 GENERAL: The patient is awake, alert, and fully oriented, in no acute distress. HEAD: Normal with no signs of trauma. EYES: PERRL, extraocular movements intact, sclera anicteric, conjunctiva clear. No ptosis. ENT: Ears normal, nares patent, oropharynx clear without exudates, moist mucous membranes. NECK: Trachea midline, full range of motion, supple. LUNGS: Breath sounds equal, clear to auscultation bilaterally, no wheezes, no crackles, no accessory muscle use. HEART: Regular rate and rhythm, S1, S2 with murmur, rub or gallop. ABDOMEN: Soft, nontender, No CVA tenderness, bilaterally ,nondistended, normoactive bowel sounds, no guarding, no rebound, no hepatosplenomegaly, no masses. EXTREMITIES: 2+ pulses, warm, well-perfused, no edema. NEUROLOGICAL: Cranial nerves II through XII grossly intact. Normal speech, gait not observed. PSYCH: Normal mood, normal affect. SKIN: Warm, dry, normal turgor, no rashes or lesions noted Laboratory Results - last 24 hr 07/27/17 07:30 Sodium 141 Potassium 4.4 Chloride 109 H Carbon Dioxide 21 Anion Gap 11 BUN 44 H Creatinine 1.8 H D Random Glucose 98 Calcium 8.5 Laboratory Tests 07/25/17 07/25/17 07/26/17 15:45 16:55 06:00 BUN 58 H D 58 H 50 H Creatinine 3.7 H D 3.5 H 3.1 H 07/27/17 07:30 BUN 44 H Creatinine 1.8 H D Active Medications Generic Name Dose Route Start Last Admin Trade Name Freq PRN Reason Stop Dose Admin Acetaminophen 650 mg 07/27/17 15:14 Tylenol - PO Q6H PRN FEVER OR PAIN Atorvastatin Calcium 10 mg 07/27/17 22:00 Lipitor - PO HS BRIANA Heparin Sodium (Porcine) 5,000 unit 07/27/17 22:00 Heparin - SQ BID BRIANA Lactated Ringer's 1,000 mls @ 125 mls/hr 07/27/17 15:14 07/27/17 16:39 Lactated Ringers Solution IV 125 mls/hr ASDIR BRIANA Administration Levofloxacin 500 mg 07/28/17 10:00 Levaquin - PO DAILY [facility] Morphine Sulfate 2 mg 07/27/17 15:14 Morphine Injection - IVPUSH Q6H PRN PAIN Ondansetron HCl 4 mg 07/27/17 15:14 Zofran Injection IVPUSH Q6H PRN NAUSEA AND/OR VOMITING Ondansetron HCl 4 mg 07/27/17 15:14 Zofran Injection IVPUSH 07/27/17 21:00 Q6H PRN NAUSEA AND/OR VOMITING Oxycodone HCl 10 mg 07/27/17 15:14 Roxicodone - PO Q6H PRN Tamsulosin HCl 0.4 mg 07/26/17 08:30 07/27/17 07:47 Flomax - PO Not Given DAILY@0830 [facility] Valsartan 160 mg 07/28/17 10:00 Diovan - PO DAILY [facility] ASSESSMENT/PLAN: 1. L Nephrolithiasis Stone passed- stable S/p cystoscopy- hydronephrosis resolved 2. SELINA- BUN and CR trending down- Likely secondary to obstruction Observe till tomorrow for likely discharge Problem List - Problems (1) SELINA (acute kidney injury) Code(s): N17.9 - ACUTE KIDNEY FAILURE, UNSPECIFIED (2) Hypertension Code(s): I10 - ESSENTIAL (PRIMARY) HYPERTENSION (3) Nephrolithiasis Code(s): N20.0 - CALCULUS OF KIDNEY Visit type - Emergency Visit Emergency Visit: Yes ED Registration Date: 07/25/17 Care time: The patient presented to the Emergency Department on the above date and was hospitalized for further evaluation of their emergent condition. - New Patient This patient is new to me today: Yes Date on this admission: 07/27/17 - Critical Care Critical Care patient: No - Discharge Referral Referred to [facility] Med P.C.: No
--- NOTE | 2017-07-27 20:01 | PN ---
Teaching Attending Note Name of Resident: Cass Metz ATTENDING PHYSICIAN STATEMENT I saw and evaluated the patient. I reviewed the resident's note and discussed the case with the resident. I agree with the resident's findings and plan as documented. SUBJECTIVE: no pain or hematuria . seen before cystoscopy today OBJECTIVE: NAD Cv: RRR, 3/6 Sm at LUSB, LLSB, RUSB, apex Lungs: CTAB ext: no edema Abd : soft, NT, ND , NL BS A/P: 67 y/o man with h/o nephrolithiasis who presented with L flank pain and was found to have L hydro with obstructing proximal stone 1- L hydro with nephrolithiasis : - s/p retrograde cystoscopy today . no stones found - cont IVF till am - follow urine cx - Uro f/u 2- SELINA: likely due to obstructive uropathy and NSAIDs use - cont IVF - expect cr to improve further tomorrow 3- HTN: slightly elevated. cont to hold diovan due to SELINA dispo : possible dc tomorrow
[2017-07-27] MEDS ORDERED: ATORVASTATIN CA 10 MG TABLET (FP) PO SCH (22:00)
[2017-07-28] MEDS: LACTATED RINGERS SOLUTION 1,000 ML IV SCH (02:09)
--- NOTE | 2017-07-28 08:12 | OP ---
DATE OF OPERATION: 07/27/2017 PREOPERATIVE DIAGNOSIS: Left ureteral calculus, left hydroureteronephrosis. POSTOPERATIVE DIAGNOSIS: Resolved hydronephrosis and passed stone. OPERATIVE PROCEDURE: Cystoscopy, left retrograde. OPERATING SURGEON: Ghazal Ortiz MD ANESTHESIA: General. DESCRIPTION OF PROCEDURE: The patient was brought to the operating room, given sedation and then light general anesthesia, placed in lithotomy position, prepped and draped in normal sterile fashion. A 22-Lithuanian cystoscope was inserted into the urethra without difficulty. Panendoscopy revealed what was a normal bladder mucosa with mild trabeculations, moderate prostatic hypertrophy. At the site of the left ureteral orifice there appeared to be some mucosal abrasion consistent with a passed calculus. Using a 6-Lithuanian open-ended catheter, a retrograde was performed. The diameter and trajectory of the ureter was normal without any intraluminal abnormalities. There was resolved hydronephrosis on the left. The ureteral catheter was removed, and there was prompt drainage of the contrast material. No stones seen. The bladder was emptied. The patient placed supine, awakened, and accompanied to the recovery area in stable condition. GHAZAL ORTIZ M.D. [id number]
--- NOTE | 2017-07-28 08:26 | PN ---
Progress Note (short form) - Note Progress Note: Anesthesia POD#1 S/P Cystoscopy and removal of ureteral stone under GA No N/V,no pain,VSS. eating breakfast. No complications seen. Irma Sue.
[2017-07-28 09:12] VITALS: PULSE 74
[2017-07-28 09:48] LABS: ANION GAP 8 (8-16); CALCIUM 8.4 mg/dL (8.5-10.1); CO2 25 mmol/L (21-32); CREATININE 1.5 mg/dL (0.7-1.3); GLUCOSE,RANDOM 108 mg/dL (74-106)
[2017-07-28] MEDS ORDERED: TAMSULOSIN HCL 0.4 MG CAP.ER.24H (FP) PO SCH (10:00)
[2017-07-28] MEDS ORDERED: VALSARTAN 160 MG TABLET (UD) PO SCH (10:00)
[2017-07-28] MEDS ORDERED: LEVOFLOXACIN 500 MG TABLET (FP) PO SCH (10:00)
[2017-07-28] MEDS: TAMSULOSIN HCL 0.4 MG CAP.ER.24H (FP) PO SCH (11:39)
[2017-07-28] MEDS: HEPARIN NA (PORCINE) 5,000 UNITS/ML 1ML VIAL SQ SCH (11:39)
--- NOTE | 2017-07-28 12:39 | PN ---
Progress Note, Physician History of Present Illness: Pt seen and examined at bedside. He is awake and alert. He denies pain. - Current Medication List Current Medications: Active Medications Acetaminophen (Tylenol -) 650 mg PO Q6H PRN PRN Reason: FEVER OR PAIN Last Admin: 07/27/17 22:00 Dose: 650 mg Atorvastatin Calcium (Lipitor -) 10 mg PO HS [facility] Last Admin: 07/27/17 22:00 Dose: 10 mg Heparin Sodium (Porcine) (Heparin -) 5,000 unit SQ BID [facility] Last Admin: 07/28/17 11:39 Dose: 5,000 unit Lactated Ringer's (Lactated Ringers Solution) 1,000 mls @ 125 mls/hr IV ASDIR [facility] Last Admin: 07/28/17 02:09 Dose: 125 mls/hr Morphine Sulfate (Morphine Injection -) 2 mg IVPUSH Q6H PRN PRN Reason: PAIN Ondansetron HCl (Zofran Injection) 4 mg IVPUSH Q6H PRN PRN Reason: NAUSEA AND/OR VOMITING Oxycodone HCl (Roxicodone -) 10 mg PO Q6H PRN Last Admin: 07/27/17 22:00 Dose: 10 mg Tamsulosin HCl (Flomax -) 0.4 mg PO DAILY@0830 [facility] Last Admin: 07/28/17 11:39 Dose: 0.4 mg - Objective Vital Signs: Vital Signs Temperature 99.0 F 07/28/17 09:10 Pulse Rate 74 07/28/17 09:10 Respiratory Rate 18 07/28/17 09:10 Blood Pressure 133/77 07/28/17 09:10 O2 Sat by Pulse Oximetry (%) 97 07/27/17 20:34 Constitutional: Yes: Calm Eyes: Yes: Conjunctiva Clear HENT: Yes: Atraumatic Neck: Yes: Supple Cardiovascular: Yes: S1, S2 Respiratory: Yes: CTA Bilaterally Gastrointestinal: Yes: Normal Bowel Sounds, Soft Genitourinary: Yes: WNL Musculoskeletal: Yes: WNL Edema: No Neurological: Yes: Oriented Psychiatric: Yes: Oriented Labs: CBC, BMP 07/26/17 06:00 07/28/17 08:55 INR, PTT INR 1.21 (0.82-1.09) H 07/26/17 06:00 Problem List - Problems (1) Nephrolithiasis Code(s): N20.0 - CALCULUS OF KIDNEY (2) SELINA (acute kidney injury) Code(s): N17.9 - ACUTE KIDNEY FAILURE, UNSPECIFIED (3) Hypertension Code(s): I10 - ESSENTIAL (PRIMARY) HYPERTENSION Assessment/Plan Current Medications Generic Name Dose Route Start Last Admin Trade Name Freq PRN Reason Stop Dose Admin Acetaminophen 650 mg 07/27/17 15:14 07/27/17 22:00 Tylenol - PO 650 mg Q6H PRN Administration FEVER OR PAIN Atorvastatin Calcium 10 mg 07/27/17 22:00 07/27/17 22:00 Lipitor - PO 10 mg HS BRIANA Administration Heparin Sodium (Porcine) 5,000 unit 07/27/17 22:00 07/28/17 11:39 Heparin - SQ 5,000 unit BID BRIANA Administration Lactated Ringer's 1,000 mls @ 125 mls/hr 07/27/17 15:14 07/28/17 02:09 Lactated Ringers Solution IV 125 mls/hr ASDIR BRIANA Administration Morphine Sulfate 2 mg 07/27/17 15:14 Morphine Injection - IVPUSH Q6H PRN PAIN Ondansetron HCl 4 mg 07/27/17 15:14 Zofran Injection IVPUSH Q6H PRN NAUSEA AND/OR VOMITING Oxycodone HCl 10 mg 07/27/17 15:14 07/27/17 22:00 Roxicodone - PO 10 mg Q6H PRN Administration Tamsulosin HCl 0.4 mg 07/26/17 08:30 07/28/17 11:39 Flomax - PO 0.4 mg DAILY@0830 BRIANA Administration Impression 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 hx HTN 3. nephrolithiasis 4. left side hydro 5. nsaid use 6. hyperlipidemia Plan - renal function stabilizing - avoid nsaids - can see as outpt - SELINA likely from obstruction and from excess NSAID use - will follow Dr Gonzalez
--- NOTE | 2017-07-28 13:27 | DS ---
Physical Exam: SUBJECTIVE: Patient seen and examined. No complaints. No more flank pains. Had cystoscopy yesterday which showed resolved L hydronephrosis and no stones. OBJECTIVE: Vital Signs Period Temp Pulse Resp BP Sys/Cronin Pulse Ox Last 24 Hr 98.0 F-99.0 F 66-78 16-20 126-159/66-89 97-99 PHYSICAL EXAM GENERAL: The patient is awake, alert, and fully oriented, in no acute distress. HEAD: Normal with no signs of trauma. EYES: PERRL, extraocular movements intact, sclera anicteric, conjunctiva clear. ENT: Moist mucous membranes. LUNGS: Breath sounds equal, clear to auscultation bilaterally, no wheezes, no crackles, no accessory muscle use. HEART: Regular rate and rhythm, S1, S2, systolic murmur R, rub or gallop. ABDOMEN: Soft, nontender, nondistended, normoactive bowel sounds, no guarding, no rebound, no hepatosplenomegaly, no masses. EXTREMITIES: 2+ pulses, warm, well-perfused, no edema. NEUROLOGICAL: Cranial nerves II through XII grossly intact. Normal speech, gait not observed. PSYCH: Normal mood, normal affect. SKIN: Warm, dry, normal turgor, no rashes or lesions noted. LABS Laboratory Results - last 24 hr 07/28/17 08:55 Sodium 140 Potassium 4.4 Chloride 107 Carbon Dioxide 25 Anion Gap 8 BUN 25 H D Creatinine 1.5 H Random Glucose 108 H Calcium 8.4 L HOSPITAL COURSE: Date of Admission:07/25/17 Date of Discharge: 07/28/17 Patient was admitted for L flank pain and was found to have bilateral nephrolithiasis with L hydronephrosis on plain abdominal Xray (KUB) and renal US. While on admission he passed the stone and has since not had any more flank pain. He had retrograde cystoscopy done after passing the stone that showed no stones and resolution of the L hydronephrosis. At the beginning of his admission, his creatinine and BUN were noted to be elevated but have since trended down since the passage of the stone. Discharge Summary Reason For Visit: NEPHROLITHIASIS Current Active Problems SELINA (acute kidney injury) (Acute) Hypertension (Acute) Nephrolithiasis (Acute) Ureteral calculus (Acute) Condition: Good - Instructions Referrals: Grace Ryder MD [Primary Care Provider] - - Home Medications Comprehensive Discharge Medication List: Ambulatory Orders Atorvastatin Calcium 10 mg PO DAILY 07/18/17 Levofloxacin [Levaquin -] 500 mg PO DAILY 07/18/17 Valsartan [Diovan] 160 mg PO DAILY 07/18/17 Tamsulosin HCl [Flomax] 0.4 mg PO DAILY #21 cap.er.24h 07/19/17 Problem List - Problems (1) SELINA (acute kidney injury) Code(s): N17.9 - ACUTE KIDNEY FAILURE, UNSPECIFIED (2) Hypertension Code(s): I10 - ESSENTIAL (PRIMARY) HYPERTENSION (3) Nephrolithiasis Code(s): N20.0 - CALCULUS OF KIDNEY - Discharge Referral Referred to [facility] No
[2017-07-28 14:11] VITALS: BP 117/76; TEMP 99.2
--- NOTE | 2017-07-28 14:27 | PN ---
Teaching Attending Note Name of Resident: Cass Metz ATTENDING PHYSICIAN STATEMENT I saw and evaluated the patient. I reviewed the resident's note and discussed the case with the resident. I agree with the resident's findings and plan as documented. SUBJECTIVE: no fever or chills . no abd pain. no hematuria OBJECTIVE: NAD Cv: RRR, 3/6 Sm at LUSB, LLSB, RUSB, apex Lungs: CTAB ext: no edema A/P: 67 y/o man with h/o nephrolithiasis who presented with L flank pain and was found to have L hydro with obstructing proximal stone 1- L hydro with nephrolithiasis : s/p retrograde cystoscope he passed the stone spontaneously dc IVF cont folmax f/u with uro as out pt 2- SELINA: likely due to obstructive uropathy and NSAIDs use -much improved . dc IVF 3- HTN: resume his home diovan dispo : dc home today
== END 2017-07-28 15:25 | disposition home or self-care (01) | DRG 694 ==
LOC: JER 14:28 → JERBED 17:18 → J6S 19:19
PROVIDERS: ADMIT Internal Medicine; ATTEND Internal Medicine
PROC: BT1FZZZ Fluoroscopy of Left Kidney, Ureter and Bladder (ICD-10-PCS; principal; 2017-07-27 13:00)
DX: N13.2 Hydronephrosis with renal and ureteral calculous obstruction (principal); N13.8 Other obstructive and reflux uropathy; N28.1 Cyst of kidney, acquired; I10 Essential (primary) hypertension; E78.5 Hyperlipidemia, unspecified; N17.9 Acute kidney failure, unspecified; N40.0 Benign prostatic hyperplasia without lower urinary tract symptoms; K57.90 Diverticulosis of intestine, part unspecified, without perforation or abscess without bleeding; Z79.52 Long term (current) use of systemic steroids
CPT/HCPCS: 36415; 74000-TC; 76000-TC; 76775-TC; 80048; 80053; 81003; 81015; 83735; 84100; 85025; 85610; 85730; 86850; 86900; 86901; 87086; 94760; 97116-GP; 99283-25; J1644

== ENCOUNTER 2017-08-24 09:03 | Emergency (ER) | payer OTHER ==
[2017-08-24 10:12] VITALS: BMI 25.4
--- NOTE | 2017-08-24 10:30 | PDOC ---
History of Present Illness - General History Source: Patient Exam Limitations: No Limitations - History of Present Illness Initial Comments: 08/24/17 11:37 Patient is a 67 year old male with a significant past medical history of HTN, HLD, remote prior renal stone who presents to the ED with complaints of right back pain that began yesterday morning. Patient reports the right sided back pain began yesterday morning that intensified throughout the day and again this morning at 5am. Patient reports right sided pain is a sharp non radiating pain that he rates as a 10/10 in intensity. He reports coming to ED 2 weeks ago for 2 kidney stones on his left side. Patient states one was passed and the second was removed surgically. Patient reports taking tylenol x1 yesterday for the pain with minimal relief. Patients intermittent chest pain secondary to kidney pain. Denies SOB. Denies fever, chills. Denies dysuria, hematuria. Denies diarrhea, constipation. Denies any other symptoms. Allergies: Seasonal Social history: Retired. Lives at home with . No smoking. No alcohol. No ill Surgical history: Kidney stone. Diverticulitis. PMD: Dr. Ryder <Bonifacio Dejesus - Last Filed: 08/24/17 14:10> <Cesar Cerda - Last Filed: 08/24/17 14:28> - General Chief Complaint: Pain, Acute Stated Complaint: KIDNEY STONES (PCP SENT) Time Seen by Provider: 08/24/17 10:29 Past History <Bonifacio Dejesus - Last Filed: 08/24/17 14:10> - Past Medical History GI Disorders: Yes (DIVERTICULITIS.) HTN: Yes Hypercholesterolemia: Yes Kidney Stones: Yes - Surgical History Abdominal Surgery: Yes (FOR DIVERTIC.) - Suicide/Smoking/Psychosocial Hx Smoking History: Never smoked Have you smoked in the past 12 months: No Information on smoking cessation initiated: No Hx Alcohol Use: No Drug/Substance Use Hx: No Substance Use Type: None <Cesar Cerda - Last Filed: 08/24/17 14:28> - Past Medical History Allergies/Adverse Reactions: Allergies Allergy/AdvReac Type Severity Reaction Status Date / Time oxycodone AdvReac Nausea Verified 08/24/17 10:12 Home Medications: Ambulatory Orders Atorvastatin Calcium 10 mg PO DAILY 07/18/17 Valsartan [Diovan] 160 mg PO DAILY 07/18/17 Acetaminophen [Tylenol .Regular Strength -] 650 mg PO Q6H PRN #0 tablet Miscellaneous Drug Not In Syst [Outpatient Lab Test] 1 each ASDIR #1 misc Tamsulosin HCl [Flomax] 0.4 mg PO DAILY #30 cap.er.24h 07/28/17 Ondansetron [Zofran Odt -] 4 mg SL TID #21 od.tablet 08/24/17 Tramadol HCl 50 mg PO QID #20 tablet MDD 4 08/24/17 Review of Systems - Review of Systems Able to Perform ROS?: Yes Comments:: 08/24/17 11:37 GENERAL/CONSTITUTIONAL: No fever or chills. No weakness. HEAD, EYES, EARS, NOSE AND THROAT: No change in vision. No ear pain or discharge. No sore throat. CARDIOVASCULAR: +Chest pain No shortness of breath. RESPIRATORY: No cough, wheezing, or hemoptysis. GASTROINTESTINAL: No nausea, vomiting, diarrhea or constipation. GENITOURINARY: No dysuria, frequency, or change in urination. MUSCULOSKELETAL: +Right sided back pain No joint or muscle swelling or pain. No neck SKIN: No rash NEUROLOGIC: No headache, vertigo, loss of consciousness, or change in strength/ sensation. ENDOCRINE: No increased thirst. No abnormal weight change. HEMATOLOGIC/LYMPHATIC: No anemia, easy bleeding, or history of blood clots. ALLERGIC/IMMUNOLOGIC: No hives or skin allergy. All Other Systems: Reviewed and Negative <Bonifacio Dejesus - Last Filed: 08/24/17 14:10> *Physical Exam - Vital Signs Last Vital Signs Temp Pulse Resp BP Pulse Ox 98.0 F 72 18 168/72 100 08/24/17 09:20 08/24/17 09:20 08/24/17 09:20 08/24/17 09:20 08/24/17 09:20 - Physical Exam Comments: 08/24/17 11:38 GENERAL: Awake, alert, and fully oriented, in no acute distress HEAD: No signs of trauma EYES: PERRLA, EOMI, sclera anicteric, conjunctiva clear ENT: Auricles normal inspection, hearing grossly normal, nares patent, oropharynx clear without exudates. Moist mucosa NECK: Normal ROM, supple, no lymphadenopathy, JVD, or masses LUNGS: Breath sounds equal, clear to auscultation bilaterally. No wheezes, and no crackles HEART: +3/6 systolic murmur Regular rate and rhythm, normal S1 and S2, rubs or gallops ABDOMEN: Soft, nontender, normoactive bowel sounds. No guarding, no rebound. No masses EXTREMITIES: Normal range of motion, no edema. No clubbing or cyanosis. No cords, erythema, or tenderness NEUROLOGICAL: Cranial nerves II through XII grossly intact. Normal speech, SKIN: Warm, Dry, normal turgor, no rashes or lesions noted. <Bonifacio Dejesus - Last Filed: 08/24/17 14:10> - Vital Signs Last Vital Signs Temp Pulse Resp BP Pulse Ox 98.0 F 72 18 168/72 100 08/24/17 09:20 08/24/17 09:20 08/24/17 09:20 08/24/17 09:20 08/24/17 09:20 <Cesar Cerda - Last Filed: 08/24/17 14:28> ED Treatment Course - LABORATORY CBC & Chemistry Diagram: 08/24/17 11:20 08/24/17 11:20 - ADDITIONAL ORDERS Additional order review: 08/24/17 11:20 RBC 4.86 MCV 79.6 L MCHC 33.2 RDW 15.2 MPV 10.2 D Neutrophils % 68.0 Lymphocytes % 19.7 D Monocytes % 9.5 Eosinophils % 2.3 D Basophils % 0.5 <Bonifacio Dejesus - Last Filed: 08/24/17 14:10> - LABORATORY CBC & Chemistry Diagram: 08/24/17 11:20 08/24/17 11:20 <Cesar Cerda - Last Filed: 08/24/17 14:28> Medical Decision Making - Medical Decision Making 08/24/17 14:[address] Ortiz @14:10pm. Awaiting call back. <Bonifacio Dejesus - Last Filed: 08/24/17 14:10> *DC/Admit/Observation/Transfer - Attestations Scribe Attestion: 08/24/17 11:41 Documentation prepared by Bonifacio Dejesus, acting as associate medical director for Cesar Cerda MD/DO. <OlegBonifacio - Last Filed: 08/24/17 14:10> - Attestations Physician Attestion: 08/24/17 10:29 I, Dr. Cesar Cerda, attest that this document has been prepared under my direction and personally reviewed by me in its entirety. I further attest, that it accurately reflects all work, treatment, procedures and medical decision -making performed by me. <Cesar Cerda - Last Filed: 08/24/17 14:28> Diagnosis at time of Disposition: Acute right flank pain, Musculoskeletal pain - Discharge Dispostion Disposition: HOME Condition at time of disposition: Improved - Prescriptions Prescriptions: Tramadol HCl 50 mg PO QID #20 tablet MDD 4 Ondansetron [Zofran Odt -] 4 mg SL TID #21 od.tablet - Referrals Referrals: Grace Ryder MD [Primary Care Provider] - - Patient Instructions Printed Discharge Instructions: DI for Musculoskeletal Pain, DI for Kidney Stones Additional Instructions: Mr Diaz- So sorry that you are hurting so bad. It does not look like this is a kidney stone problem. The pain may just be coming from the muscles in your back. I spoke with your urologist..... He wants you to call his office when you get home to make an appointment with him for tomorrow or thursday. Return to us if any problems. Use the Tramadol for pain and take the Zofran ODT if the Tramadol makes you nauseated or upsets your stomach. Best- Dr. Cesar Cerda
[2017-08-24] MEDS ORDERED: morphine CARPU-JECT 4 MG/1 ML DISP.SYRIN IVPUSH ONE (10:53)
[2017-08-24] MEDS ORDERED: ONDANSETRON 4 MG/2 ML VIAL IVPUSH ONE (10:53)
[2017-08-24] MEDS ORDERED: SODIUM CHLORIDE 1,000 ML IV STA (10:53)
[2017-08-24] MEDS ORDERED: KETOROLAC TROMETHAMINE 30 MG/1 ML VIAL IVPUSH ONE (10:53)
[2017-08-24] MEDS ORDERED: KETOROLAC TROMETHAMINE 30 MG/1 ML VIAL ONE (11:17)
[2017-08-24] MEDS ORDERED: morphine CARPU-JECT 4 MG/1 ML DISP.SYRIN ONE (11:17)
[2017-08-24] MEDS ORDERED: ONDANSETRON 4 MG/2 ML VIAL ONE (11:17)
[2017-08-24 11:29] LABS: BASOPHIL 0.5 % (0-2.0); EOSINOPHIL 2.3 % (0-4.5); MCH 26.4 pg (25.7-33.7); MCHC 33.2 g/dl (32.0-35.9); MEAN CELL VOLUME 79.6 fl (80-96); MEAN PLT VOLUME 10.2 fl (7.5-11.1); PLATELET COUNT 73 K/MM3 (134-434); RDW 15.2 % (11.9-15.9); WHITE BLOOD COUNT 5.3 K/mm3 (4.0-10.0)
[2017-08-24 11:35] LABS: URINE APPEARANCE CLEAR; URINE BILIRUBIN NEGATIVE (NEGATIVE); URINE BLOOD NEGATIVE (NEGATIVE); URINE COLOR LTYELLOW; URINE GLUCOSE (UA) NEGATIVE (NEGATIVE); URINE KETONE NEGATIVE (NEGATIVE); URINE LEUK ESTERASE NEGATIVE (NEGATIVE); URINE NITRITE NEGATIVE (NEGATIVE); URINE PROTEIN NEGATIVE (NEGATIVE); URINE UROBILINOGEN NEGATIVE mg/dL (0.2-1.0)
[2017-08-24 11:45] LABS: INR 0.98 (0.82-1.09); PROTHROMBIN TIME (PATIENT) 10.8 SEC (9.98-11.88)
[2017-08-24 11:52] LABS: ALBUMIN 4.1 g/dl (3.4-5.0); ANION GAP 9 (8-16); BILIRUBIN,TOTAL 0.5 mg/dL (0.2-1.0); CALCIUM 9.1 mg/dL (8.5-10.1); CO2 27 mmol/L (21-32); CREATININE 1.1 mg/dL (0.7-1.3); GLUCOSE,RANDOM 100 mg/dL (74-106); SGOT/AST 12 U/L (15-37); SGPT/ALT 21 U/L (12-78)
[2017-08-24 11:53] LABS: ALK PHOS 84 U/L (45-117)
[2017-08-24] MEDS ORDERED: HYDROmorphone HCL CARPU-JECT 1 MG/1 ML DISP.SYRIN IVPB ONE (13:54)
[2017-08-24] MEDS ORDERED: HYDROmorphone HCL CARPU-JECT 1 MG/1 ML DISP.SYRIN ONE (14:48)
[2017-08-24 16:20] VITALS: BP 116/46; PULSE 63; TEMP 98.6
== END 2017-08-24 16:21 | disposition home or self-care (01) ==
LOC: JER 09:03
PROC: 3E033NZ Introduction of Analgesics, Hypnotics, Sedatives into Peripheral Vein, Percutaneous Approach (ICD-10-PCS; principal; 2017-08-24)
PROC: 3E0333Z Introduction of Anti-inflammatory into Peripheral Vein, Percutaneous Approach (ICD-10-PCS; 2017-08-24)
PROC: 3E033GC Introduction of Other Therapeutic Substance into Peripheral Vein, Percutaneous Approach (ICD-10-PCS; 2017-08-24)
PROC: 3E033NZ Introduction of Analgesics, Hypnotics, Sedatives into Peripheral Vein, Percutaneous Approach (ICD-10-PCS; 2017-08-24)
DX: N13.2 Hydronephrosis with renal and ureteral calculous obstruction (principal); Z87.442 Personal history of urinary calculi
CPT/HCPCS: 36415; 71020-TC; 74176; 80053; 81003; 85025; 85610; 87086; 96374; 96375; 99282-25